=== PATIENT | female | born 1945 | race Caucasian/White ===

== ENCOUNTER 2019-11-29 06:56 | Observation (INO) ==
--- NOTE | 2019-11-05 14:58 | PAT Medication Instructions ---
Medication Instructions Date of Service November 05, 2019 Home Medications budesonide-formoterol [Symbicort] 2 puff INHALATION BID calcium carbonate-vit D3-min [Calcium 600 + Minerals] 1 tab PO QAM fluticasone propionate [Flonase Allergy Relief] 1 spray INTRANASAL BID PRN rmed 11/03/19] lisinopril-hydrochlorothiazide 1 tab PO HS loratadine [Claritin] 10 mg PO HS vitamins A,C,Y-xjwn-zqvdvf [PreserVision AREDS] 2 tab PO QAM STOP taking 2 weeks before surgery vitamins A,C,T-rgnl-smhdph [PreserVision AREDS] 2 tab PO QAM DO NOT take the morning of surgery calcium carbonate-vit D3-min [Calcium 600 + Minerals] 1 tab PO QAM Take morning of surgery With a small sip of water, OTHERWISE NOTHING TO EAT OR DRINK AFTER MIDNIGHT: budesonide-formoterol [Symbicort] 2 puff INHALATION BID fluticasone propionate [Flonase Allergy Relief] 1 spray INTRANASAL BID PRN (if needed) Take evening before surgery budesonide-formoterol [Symbicort] 2 puff INHALATION BID fluticasone propionate [Flonase Allergy Relief] 1 spray INTRANASAL BID PRN (if needed) lisinopril-hydrochlorothiazide 1 tab PO HS loratadine [Claritin] 10 mg PO HS Other Notes If you have any questions please call us at [phone] or [phone] or [phone] or [phone]
--- NOTE | 2019-11-10 13:42 | Anesthesiology Consultation ---
Date of Service November 10, 2019 Assessment & Plan (1) Encounter for pre-operative examination: Chart Review Chart Review: Acceptable Risk for Surgery (pending preop covid testing) and Patient seen in Pre Admission Testing Per PAT appt on 11/10/19, resides in [facility]. Had negative Covid test 10/29/19 preoperatively for c-scope. Educated patient to follow up with surgeon's office regarding Covid testing. Educated on importance of self quarantining, social distancing and wearing mask in public both for herself and household contacts. Teaching & Discussion Pre-Anesthesia Teaching/Discussion Notes: Instructed NPO after midnight before surgery,except medications with 15 cc of water. Medication instructions provided according to the [facility] guidelines. History Surgery Operation Date: 11/29/19 09:20 Proposed Procedures p Right Total Knee Arhtroplasty - Floyd Sotomayor, Height/Weight Height: 5 ft 2 in Weight: 77.2 kg Allergies Allergy/AdvReac Type Severity Reaction Status Date / Time No Known Allergies Allergy Verified 11/03/19 09:44 Medications Home Medications Medication Instructions Recorded Confirmed Last Taken budesonide-formoterol [Symbicort] 2 puff INHALATION BID 11/03/19 11/03/19 Unknown calcium carbonate-vit D3-min 1 tab PO QAM 11/03/19 11/03/19 Unknown [Calcium 600 + Minerals] fluticasone propionate [Flonase 1 spray INTRANASAL BID PRN 11/03/19 11/03/19 Unknown Allergy Relief] lisinopril-hydrochlorothiazide 1 tab PO HS 11/03/19 11/03/19 Unknown loratadine [Claritin] 10 mg PO HS 11/03/19 11/03/19 Unknown vitamins A,C,V-azwm-icaleu 2 tab PO QAM 11/03/19 11/03/19 Unknown [PreserVision AREDS] Past Medical History Medical History Asthma Controlled and stable. Albuterol use once nightly- PRN during the day. Cancer ENDOMETRIAL (2007)- S/P HYSTERECTOMY BSO- no chemo and XRT Hypertension Osteoarthritis Pneumonia 07/2019 TREATED THRU NGHIA ADAN WITH ANTIBIOTICS/STEROID-"FEELING BETTER" Thyroid nodule THYROID BEING CHECKED CURRENTLY [facility]-ULTRASOUND 11/15/19 Exercise / Class Metabolic Activity II 4-5 Yardwork/Stairs/Walk up hill (one flight of stairs - no chest pain or SOB ) Past Family History Family History Father Family history of diabetes mellitus Uncle Family history of esophageal cancer Past Surgical History Surgical History History of colonoscopy History of hysterectomy History of repair of rotator cuff RIGHT Status post knee replacement LEFT Past Anesthesia History No Hx of Anesthesia Complications and No Family Hx of Anesthesia Complications History of PONV No Hx of PONV and Hx of Motion Sickness (mild ) Social History Smoking Status: Never smoker Hx Alcohol Use: Yes Alcohol type: hard liquor alcohol intake frequency: 0-2 drinks per day (1-2 drinks daily ) Hx Substance Use: No Review of Systems Occ snoring- no witnessed apnea. No hx of sleep study Patient denies chest pain, shortness of breath, dyspnea on exertion, reflux, cough, wheezing, palpitations. No hx of seizures, stroke, ME. No hx of blood clots or blood transfusions Physical Exam Vital Signs VITALS BP 138/76 P 71 TEMP 98.3 SP02 96% RESP 16 Constitutional no acute distress ENMT Mouth: no TMJ clicking Thyromental Distance: > or= 3.5 Finger Breadths (4.0) Mallampati Class: II Denies missing teeth Neck neck extension not limited Respiratory normal respiratory effort; no respiratory distress Auscultation: lungs clear to auscultation bilaterally; no wheezes Cardiovascular Rate/Rhythm: regular rate and regular rhythm Heart Sounds: no murmur Vessels: no carotid bruit Musculoskeletal Spine: no pain with cervical ROM Neurologic moves all extremities Psychiatric Orientation: alert Testing Laboratory Results 11/10/19 13:58 11/10/19 13:58 PT 10.7 Seconds (9.0-12.0) 11/10/19 13:58 INR 1.0 (0.9-1.1) 11/10/19 13:58 APTT 27.5 Seconds (21.0-31.0) 11/10/19 13:58 Blood Type O Positive 11/10/19 13:58 Antibody Screen NEGATIVE 11/10/19 13:58 Electrocardiogram Date: 11/10/19 Findings: + NSR @ (61) Left axis deviation. Low voltage QRS. Chest X-Ray Date: 11/10/19 Findings: + NAD Echocardiogram Date: 04/04/15 EF: 55-60% LV Function: normal RWMA: + none Impaired LV relaxation per transmitral doppler flow pattern. LA mildly dilated. Mild TR
--- NOTE | 2019-11-10 14:18 | XRay Report ---
XR chest Pre-admission PA/Lat CLINICAL HISTORY: pat preoperative COMPARISON STUDY: No previous studies for comparison. FINDINGS: The bones soft tissues and hemidiaphragms are normal. The cardiomediastinal silhouette is n ormal. The lungs are clear. The pulmonary vasculature is normal. IMPRESSION: Negative chest. ACT 112: Negative or not required by law. The above report was generated using voice recognition software. It may contain grammatical, syntax or spelling errors. Electronically signed by: Asif Nunez M.D. 11/10/2019 2:17 PM
--- NOTE | 2019-11-10 14:54 | Electrocardiogram Report ---
Test Reason : Blood Pressure : / mmHG Vent. Rate : 061 BPM Atrial Rate : 061 BPM P-R Int : 136 ms QRS Dur : 096 ms QT Int : 412 ms P-R-T Axes : 074 -45 073 degrees QTc Int : 414 ms Normal sinus rhythm Left axis deviation Low voltage QRS Abnormal ECG No previous ECGs available Confirmed by Phoenix Weston ([id number]) on 11/10/2019 2:54:35 PM Referred By: Floyd Sotomayor Confirmed By:Phoenix Weston
[2019-11-10 16:37] LABS: Basophils # (auto) 0.05 K/uL (0-0.2); Basophils % (auto) 0.7 %; Eosinophils # (auto) 0.41 K/uL (0-0.5); Eosinophils % (auto) 6.1 %; Hematocrit (blood only) 38.1 % (37-47); Hemoglobin 12.5 g/dL (12.0-16.0); Immature Granulocytes # (auto) 0.01 K/uL (0.00-0.02); Immature Granulocytes % (auto) 0.1 %; Lymphocytes # (auto) 2.07 K/uL (1.2-3.4); Lymphocytes % (auto) 30.8 %; Mean Corpuscular Hemoglobin 32.2 pg (25-34); Mean Corpuscular Hgb Conc 32.8 g/dL (32-36); Mean Corpuscular Volume 98.2 fL (80-100); Mean Platelet Volume 12.3 fL (7.4-10.4); Monocytes # (auto) 0.68 K/uL (0.11-0.59); Monocytes % (auto) 10.1 %; Neutrophils # (auto) 3.49 K/uL (1.4-6.5); Neutrophils % (auto) 52.2 %; Platelet Count 220 K/uL (130-400); RDW Coefficient of Variation 13.2 % (11.5-14.5); RDW Standard Deviation 46.9 fL (36.4-46.3); Red Blood Count 3.88 M/uL (4.2-5.4); White Blood Count 6.71 K/uL (4.8-10.8)
[2019-11-10 16:46] LABS: BUN Creatinine Ratio 21.5 (10-20); Calcium 9.6 mg/dl (8.5-10.1); Creatinine Clr Calc Pharmacy 60.4 ml/min; Est GFR (African American) 84.1; Est GFR (Non-African American) 72.6; Potassium 4.1 mmol/L (3.5-5.1)
[2019-11-10 16:50] LABS: Partial Thromboplastin Time 27.5 Seconds (21.0-31.0); Prothrombin Time 10.7 Seconds (9.0-12.0)
--- NOTE | 2019-11-25 06:34 | History & Physical Report ---
Date of Service November 25, 2019 Assessment & Plan (1) Osteoarthritis of right knee: We will proceed with a right total knee arthroplasty. Postoperatively she will be started on aspirin for DVT prophylaxis and kept overnight in the hospital for postoperative medical management. Selam is a low risk for joint placement surgery without any major comorbidities. Present on Admission?: Yes History of Present Illness Chief Complaint: Primary osteoarthritis of the right knee Primary Care Provider: Murtaza oBwen MD Selam is a pleasant 74-year-old female who is been dealing with chronic increasing right knee pain. X-rays and clinical examination have been diagnostic for advanced osteoarthritis of the right knee. After failing conservative treatment, she has elected to proceed with a right total knee arthroplasty. She does have a history of a left knee replacement done in [place] several years ago. She has done well with that. Allergies Allergy/AdvReac Type Severity Reaction Status Date / Time No Known Allergies Allergy Verified 11/03/19 09:44 Home Medications Home Medications Medication Instructions Recorded Confirmed Type budesonide-formoterol [Symbicort] 2 puff INHALATION BID 11/03/19 11/03/19 History calcium carbonate-vit D3-min 1 tab PO QAM 11/03/19 11/03/19 History [Calcium 600 + Minerals] fluticasone propionate [Flonase 1 spray INTRANASAL BID PRN 11/03/19 11/03/19 History Allergy Relief] lisinopril-hydrochlorothiazide 1 tab PO HS 11/03/19 11/03/19 History loratadine [Claritin] 10 mg PO HS 11/03/19 11/03/19 History vitamins A,C,G-kpjo-zmgfwh 2 tab PO QAM 11/03/19 11/03/19 History [PreserVision AREDS] Past Med/Surg History Medical History Asthma Controlled and stable. Albuterol use once nightly- PRN during the day. Cancer ENDOMETRIAL (2007)- S/P HYSTERECTOMY BSO- no chemo and XRT Hypertension Osteoarthritis Pneumonia 07/2019 TREATED THRU NGHIA ADAN WITH ANTIBIOTICS/STEROID-"FEELING BETTER" Thyroid nodule THYROID BEING CHECKED CURRENTLY [facility]-ULTRASOUND 11/15/19 Surgical History History of colonoscopy History of hysterectomy History of repair of rotator cuff RIGHT Status post knee replacement LEFT Family History Father Family history of diabetes mellitus Uncle Family history of esophageal cancer Social History Preferred Language: Grenadian Communication Ability: Effective Configuration Manager Required: No Beliefs That Will Affect Care: None Current Living Situation: Spouse Feels Safe at Home: Yes Smoking Status: Never smoker Second Hand Exposure: Yes (FATHER/SPOUSE) ; Hx Alcohol Use: Yes Alcohol type: hard liquor Hx Substance Use: No Review of Systems Review of Systems: All systems reviewed & are unremarkable except as noted in HPI & below Physical Exam Constitutional: WD/WN, vitals as above Eyes: PERRL, conjunctivae normal, anicteric sclerae ENMT: external ear and nose normal, oropharynx normal Neck: trachea midline, no thyromegaly Respiratory: normal respiratory effort Cardiovascular: RRR, no murmur, no edema Gastrointestinal (Abdomen): normal bowel sounds, soft, nontender, no hepatosplenomegaly Musculoskeletal: On physical examination of the right knee there is a trace effusion. There is near full range of motion and no evidence of instability. There is significant tenderness palpation along the medial and lateral joint lines and over the distal femoral condyles. Psychiatric: A+Ox3, euthymic affect Results & Data Results & Data ([facility]) Diagnostic Findings Radiographs of the right knee demonstrate advanced osteoarthritis with joint space narrowing osteophyte formation and efys-mq-ajjm articulation. PG Care Time/CCT Total # of Minutes Spent Total Time Spent with Patient: Total time spent is greater than 50% in coordination of care (as documented) at patient's floor/unit and/or counseling patient: Coding Level of Care Code 11749 Initial Inpt Care Lvl 3 Diagnoses Osteoarthritis of right knee M17.11
[~2019-11-29 06:56] MED LIST: ACETAMINOPHEN 500 MG TAB PO SCH; CEFAZOLIN 1000MG 1,000 MG/7.5 ML SYR IV SCH; FAMOTIDINE 20 MG TAB PO SCH; GABAPENTIN 300 MG CAP PO SCH; LR 500ML BOLUS, THEN 15ML/HR IV SCH; LR 60ML/HR IV SCH; ROPIVACAINE 0.5% HCL/PF 150 MG, BUPIVACAINE 0.5% MPF 30 ML, EPINEPHrine 30MG/30ML (OR U... INFIL SCH; ROPIVACAINE 0.5% HCL/PF 150 MG, BUPIVACAINE 0.5% MPF 30 ML, EPINEPHrine 30MG/30ML (OR U... INSTIL SCH; TRANEXAMIC ACID 1,000 MG **IV Intra-op IV SCH; TRANEXAMIC ACID 1,000 MG **IV Pre-op IV SCH; [UNRECOGNIZED DRUG - REMARK] SCH; dexAMETHasone 4 MG TAB PO SCH
--- NOTE | 2019-11-29 06:58 | History & Physical Bridge Note ---
Date of Service November 29, 2019 History & Physical Bridge Note I have examined the patient, reviewed the History & Physical and in the interval since the performance of the History & Physical I have noted the following changes of clinical significance: no changes noted
[2019-11-29] MEDS ORDERED: ROPIVACAINE 0.5% 5 MG/ML 30 ML VIAL ONE (07:26)
[2019-11-29] MEDS ORDERED: BUPIVACAINE 0.5 % 5 MG/1 ML PF 10ML VIAL ONE (07:26)
[2019-11-29] MEDS ORDERED: PROPOFOL IV EMULSION 10 MG/ML 20 ML VIAL IV ONE (08:14)
[2019-11-29] MEDS ORDERED: ePHEDrine sulfate 50 MG/ML SYR ONE (08:14)
[2019-11-29] MEDS ORDERED: LIDOCAINE HCL 2% 2 ML VIAL/AMP(20MG/ML) INFIL ONE (08:14)
[2019-11-29] MEDS ORDERED: MIDAZOLAM HCL 1 MG/ML 2ML VIAL ONE ×2 (08:15)
[2019-11-29] MEDS ORDERED: fentaNYL citrate 100 MCG/2 ML VIAL ONE (08:15)
[2019-11-29] MEDS ORDERED: HYDROmorphone INJ 1 MG/ML SYRINGE IV PRN (08:29)
[2019-11-29] MEDS ORDERED: ATROPINE SULFATE 0.1 MG/ML 10ML SYR IV PRN (08:29)
[2019-11-29] MEDS ORDERED: fentaNYL citrate 100 MCG/2 ML VIAL IV PRN (08:29)
[2019-11-29] MEDS ORDERED: ONDANSETRON INJ 2 MG/ML 2 ML VIAL IV PRN ×2 (08:29→13:18)
[2019-11-29] MEDS ORDERED: ePHEDrine sulfate 50 MG/ML AMP IV PRN (08:29)
[2019-11-29] MEDS ORDERED: ORTHO JOINT ANESTHETIC ONE (09:15)
--- NOTE | 2019-11-29 11:03 | Operative Report ---
PG Post Operative Report Pre & Post Diagnosis Operation Date: 11/29/19 09:15 Pre-Op Diagnosis: RIGHT KNEE DEGENERATIVE JOINT DISEASE Post-Op Diagnosis: RIGHT KNEE DEGENERATIVE JOINT DISEASE I identified the patient and participated in the time-out.: Yes Procedure Operation Date: 11/29/19 09:15 Actual Procedures p Right Total Knee Arthroplasty(Right) - Floyd Sotomayor DO Surgeon Floyd Sotomayor DO Shirt Folding Machine Operator Floyd Constantino PAC Estimated Blood Loss 20 Findings Consistent with Post-Op Diagnosis Specimens Right femoral and tibial bone Complications none Disposition Disposition: Recovery Room Indications Selam is a pleasant 74-year-old female who presented my office with complaints of chronic increasing right knee pain. X-rays clinical examination have been diagnostic for advanced osteoarthritis of the right knee. After failing conservative treatment, she has elected to proceed with a right total knee arthroplasty. Description of Procedure Implants used: I used a Michael Persona total knee arthroplasty system with a size 9 narrow femur, E tibia, 29 patella, and a size 14 medial congruent polyethylene bearing. All components were cemented in place with Palacos G cement. Selam arrived [facility] for the above procedure. She was seen in the preoperative holding area and the operative extremity was identified and signed. She was given a preoperative antibiotic, TXA, a spinal anesthetic and an adductor nerve block. She was taken back to the operating room and laid on the table in supine position. She was given basic sedation. The operative knee was then prepped and draped in sterile fashion. A timeout was done, and the patient and the operative extremity was properly identified. A midline incision was made directly over the patella. Dissection was taken down to the extensor mechanism. A subvastus arthrotomy was used. The medial retinaculum was released and the fat pad was mostly excised. The knee was flexed and the ACL, PCL, and meniscus were removed. A drill was sent down the center of the femoral canal followed by an intramedullary zena. Off that zena a distal femoral cutting block was placed. 9 mm was resected off the distal femur at 5 of valgus. A posterior referencing AP sizing guide was then placed on the distal femur. The femur measured to be a size 9 narrow. 2 drill holes were placed in 3 of external rotation. A 4-in-1 cutting block was then impacted into place. Anterior, posterior, and chamfer cuts were then made. The proximal tibia was then exposed. An external tibial alignment guide was placed. A tibial cut guide was then anchored in place to resect 2 mm off the low medial side. The proximal tibia was then resected. The tibia measured to be a size E. The tibial plate was then placed in the appr opriate rotation and the tibia was drilled and punched. The posterior aspect of the knee was then opened up and any additional meniscus fragments and osteophytes were removed. Trial components were then placed. I used a size 14 medial congruent polyethylene insert. The knee was brought through a full range of motion and felt to be stable. The patella was then everted and 8 mm was resected off the posterior aspect of the patella. The patella measured to be a size 29. 3 peg holes were then drilled. A trial patella was placed. The knee was once again brought through a full range of motion and felt to be stable. Trial components were then removed. The surrounding soft tissues were injected with 100 cc of an orthopedic pain control cocktail. All components were then cemented into place with Palacos G cement. The final polyethylene insert was then snapped into place and the anterior bar was locked. Once cement was dry the tourniquet was deflated. Hemostasis was obtained. A dilute betadyne lavage was then done for 3 minutes. The joint was then irrigated with normal saline solution. The subvastus arthrotomy was then closed with #1 Vicryl suture. The skin was closed with 2-0 Vicryl, 3-0V lock suture, and ana rosa. A soft compressive dressing was placed. She was then transferred to a hospital bed and taken to the postanesthesia care unit in stable condition. She tole rated the procedure well. Floyd Constantino PA-C, was present for the entire procedure. He was critical for patient positioning, prepping, draping, retraction exposure, wound closure and application of sterile dressing. I attest to the content of the Intraoperative Record and any orders documented therein. Any exceptions are noted below.
--- NOTE | 2019-11-29 12:12 | Anesthesiology Progress Note ---
Date of Service November 29, 2019 Anesthesia Post Procedure Vital Signs Vital Signs: Temp Pulse Pulse Resp BP BP Pulse Ox 11/29/19 12:00 36.5 C 71 16 120/80 94 11/29/19 11:50 70 16 118/76 95 11/29/19 11:40 75 16 107/67 94 11/29/19 11:30 67 16 99/59 L 99 11/29/19 11:23 36.4 C L 69 16 98/62 L 99 11/29/19 08:00 37.1 C 64 18 147/79 H 97 11/29/19 07:28 37.1 C 68 18 140/76 95 Transfer of Care Handoff Completed per policy Notes Mental Status: alert / awake / arousable and participated in evaluation Patient Amnestic to Procedure: Yes Nausea / Vomiting: adequately controlled Pain: adequately controlled Airway Patency, RR, SpO2: stable & adequate BP & HR: stable & adequate Hydration State: stable & adequate Neuraxial Anesthesia: was administered and sensory block is resolving Anesthetic Complications: no major complications apparent and Pt Satisfied with anesthetic care Notes: The patient was noted to have T wave inversions on the monitor in PACU. A 12 lead EKG was done and showed NSR HR 65, T wave abnormality in the anterolateral leads. These changes appear to be new when compared to her preoperative EKG as well as her preop rhythm strip from today. The patient is currently resting comfortably in PACU with no complaints. She denies any chest pain, shortness of breath, lightheaded or dizziness, nausea or vomiting or any other complaints. I called and spoke to Holly who is with the [facility] service. She will be coming to the PACU to evaluate the patient. The patient will be transferred to telemetry for closer monitoring.
--- NOTE | 2019-11-29 12:44 | XRay Report ---
XR knee RT 1 or 2V routine CLINICAL HISTORY: Surgical Post Op COMPARISON: None. DISCUSSION: Anatomic alignment post total right knee arthroplasty. Could contact between prosthetic a nd underlying bone. Expected postoperative soft tissue change IMPRESSION: Anatomic alignment post total right knee arthroplasty. ACT 112: Negative or not required by law. The above report was generated using voice recognition software. It may contain grammatical, syntax or spelling errors. Electronically signed by: Asif Nunez M.D. 11/29/2019 12:42 PM
[2019-11-29 13:17] LABS: BUN Creatinine Ratio 21.4 (10-20); Blood Urea Nitrogen 18 mg/dl (7-18); Calcium 9.2 mg/dl (8.5-10.1); Carbon Dioxide 27 mmol/L (21-32); Chloride 108 mmol/L (98-107); Creatinine Clr Calc Pharmacy 59.3 ml/min; Est GFR (African American) 82.9; Est GFR (Non-African American) 71.5; Glucose 128 mg/dl (70-99); Potassium 4.4 mmol/L (3.5-5.1); Sodium 140 mmol/L (136-145)
[2019-11-29] MEDS ORDERED: FLUTICASONE PROPIONATE NA SPR 16 GM BTL PRN (13:18)
[2019-11-29] MEDS ORDERED: HYDROmorphone INJ 0.5 MG/0.5 ML SYR IV PRN (13:18)
[2019-11-29] MEDS ORDERED: METOCLOPRAMIDE HCL INJ 5 MG/ML 2 ML VIAL IV PRN (13:18)
[2019-11-29] MEDS ORDERED: bisacodyL 10 MG SUPP PR PRN (13:18)
[2019-11-29] MEDS ORDERED: NITROGLYCERIN SL 0.4 MG/TAB TAB SL PRN (13:18)
[2019-11-29] MEDS ORDERED: OXYCODONE HCL IR 5 MG TAB (IMMEDIATE RELEASE) PO PRN (13:18)
[2019-11-29] MEDS ORDERED: MAGNESIUM HYDROXIDE SUSP 30 ML UDC PO PRN (13:18)
[2019-11-29] MEDS ORDERED: NALOXONE HCL 0.4 MG/1 ML VIAL/CARP IV PRN (13:18)
[2019-11-29 13:21] LABS: Troponin I < 0.015 ng/ml (0-0.045)
--- NOTE | 2019-11-29 13:46 | Consultation ---
Date of Consultation November 29, 2019 Assessment & Plan (1) T wave inversion on electrocardiogram: This is a 74-year-old female with PMH of hypertension, asthma, thyroid nodule who is POD#0 s/p right TKA by Dr. Sotomayor who was found to have acute T wave changes on post-op EKG. -Post-op EKG with anterolateral T wave inversions that appeared new when compared to pre-op EKG from October -Asymptomatic patient, VSS, troponin negative, BMP without electrolyte abnormalities -Repeat EKG pending. Trend troponin x 2. Monitor on telemetry (2) Status post total knee replacement, right: POD#0 s/p R TKA by Dr. Sotomayor -Per ortho for pain control, wound care, anticoagulation and activities -Monitor H&H, continue incentive spirometry, PT/OT if appropriate (3) Hypertension: Continue lisinopril and hctz (4) Thyroid nodule: Recent abnormal thyroid labwork. F/u ultrasound with increased vascularity within some thyroid nodules. Started on levothyroxine with instructions to f/u with endo in [place] (5) Asthma: Continue Symbicort, albuterol PRN DVT Ppx: aspirin per primary service PCP: Jessi Dispo: Per ortho Thank you for this consultation. We will follow the patient with you during their hospital stay. You can reach a member of the [facility] Hospitalist Team 09/12 via pager @ [phone]. Patient seen in collaboration with Dr. Ramos. Please see addendum. Supervising Physician Co-Signing Physician Notes Attending addendum The patient was seen and examined in medical telemetry unit She has IVCD and was noted to have T inversion in V1 and 5, 6 following surgery today She mentioned to have required telemetry care following previous surgeries but does not know whether for the same reason Denies any chest pain, palpitation, shortness of breath On examination Hemodynamically stable No apparent distress at rest Heart-S1-S2 no murmur Labs and imaging studies and EKG as noted We will have troponin every 6 hours Repeat EKG in the morning Doubt any ACS Agree with assessment and plan as outlined above by VAN [address] History of Present Illness Reason for Consultation: Postoperatively EKG changes Attending Physician: Floyd Sotomayor DO History of Present Illness This is a 74-year-old female with PMH of hypertension, asthma, thyroid nodule who is POD#0 s/p right TKA by Dr. Sotomayor. Our service was consulted by anesthesiology when patient was in PACU due to T wave inversions noted on monitor. EKG then ordered and revealed anterolateral T wave inversions that appeared new when compared to pre-op EKG from October. The patient was seen while resting comfortably in PACU. She denies chest pain, pain in arms or jaw, shortness of breath, nausea or vomiting. Denies any lightheadedness, dizziness or visual changes. Denies any personal or family history of heart disease. Troponin and BMP were ordered with plans to transfer patient to [facility] telemetry for observation on monitor. Allergies Allergy/AdvReac Type Severity Reaction Status Date / Time No Known Allergies Allergy Verified 11/29/19 07:24 Home Medications Home Medications Medication Instructions Recorded Confirmed Type budesonide-formoterol [Symbicort] 2 puff INHALATION BID 11/03/19 11/29/19 History calcium carbonate-vit D3-min 1 tab PO QAM 11/03/19 11/29/19 History [Calcium 600 + Minerals] fluticasone propionate [Flonase 1 spray INTRANASAL BID PRN 11/03/19 11/29/19 History Allergy Relief] lisinopril-hydrochlorothiazide 1 tab PO HS 11/03/19 11/29/19 History [Zestoretic] loratadine [Claritin] 10 mg PO HS 11/03/19 11/29/19 History vitamins A,C,M-muvo-[id number] 2 tab PO QAM 11/03/19 11/29/19 History [PreserVision AREDS] levothyroxine 50 mcg PO DAILY 11/29/19 11/29/19 History oxycodone 5 mg PO Q4H PRN #30 tab 11/29/19 Rx Patient History Medical History (Updated 11/29/19 @ 15:33 by Floyd Sotomayor DO) Asthma Controlled and stable. Albuterol use once nightly- PRN during the day. Cancer ENDOMETRIAL (2007)- S/P HYSTERECTOMY BSO- no chemo and XRT Hypertension Osteoarthritis Thyroid nodule THYROID BEING CHECKED CURRENTLY GHS-ULTRASOUND 11/15/19 Surgical History (Updated 11/29/19 @ 15:33 by Floyd A Bran, DO) History of colonoscopy History of hysterectomy History of repair of rotator cuff RIGHT History of total right knee replacement (~11/2019) Status post knee replacement LEFT Family History Father Family history of diabetes mellitus Uncle Family history of esophageal cancer Social History Preferred Language: Faroese Communication Ability: Effective Crosstie Inspector Required: No Beliefs That Will Affect Care: Faith Current Living Situation: Spouse Other Information That Helps Us Care for You: No Feels Safe at Home: Yes Safety Concerns: Feels Safe At This Time Smoking Status: Never smoker Do You Dip or Chew Tobacco: No ; Second Hand Exposure: No ; Tobacco Cessation Education Requested by Patient: No Hx Alcohol Use: Yes Alcohol type: wine Hx Substance Use: No Review of Systems Review of Systems: At least ten systems reviewed and negative except as noted in the HPI. Physical Exam Physical Exam: General Appearance: WD/WN, vitals as above, NAD, pleasant, conversing easily Head: normocephalic, atraumatic Eyes: normal inspection, PERRL, conjunctivae normal, anicteric sclerae ENT: external ear and nose normal, oropharynx normal Neck: trachea midline, no thyromegaly normal visual inspection Respiratory: normal respiratory effort, lungs clear to auscultation, no wheeze, rales, rhonchi Cardiovascular: regular rate, rhythm, no murmur, normal peripheral pulses. Vessels: no JVD Chest: normal inspection of chest Abdomen/GI: normal bowel sounds, soft, nontender, no hepatosplenomegaly Extremities/Musculoskeletal: + R knee with surgical dressing clean, dry, intact. No cyanosis or clubbing, extremities motor strength 5/5 Neurologic: PERRL, CN's II-XI intact bilaterally and moves all extremities Psychiatric: A+Ox3, euthymic affect Skin: no rashes, normal color, warm/dry Results & Data ([facility]) Vital Signs (Past 12 Hours) Vital Signs Temp Pulse Pulse Resp BP BP Pulse Ox 11/29/19 13:10 36.6 C 64 16 120/71 96 11/29/19 12:50 36.8 C 62 16 128/76 95 11/29/19 12:40 66 16 137/71 94 11/29/19 12:30 59 L 16 119/73 94 11/29/19 12:20 59 L 16 119/73 94 11/29/19 12:10 36.5 C 59 L 16 125/73 94 11/29/19 12:00 36.5 C 71 16 120/80 94 11/29/19 11:50 70 16 118/76 95 11/29/19 11:40 75 16 107/67 94 11/29/19 11:30 67 16 99/59 L 99 11/29/19 11:23 36.4 C L 69 16 98/62 L 99 11/29/19 08:00 37.1 C 64 18 147/79 H 97 11/29/19 07:28 37.1 C 68 18 140/76 95 Laboratory Results [facility] 11/29/19 12:51 Sodium 140 Potassium 4.4 Chloride 108 H Carbon Dioxide 27 BUN 18 Creatinine 0.82 Glucose 128 H Calcium 9.2 Cardiac Enzymes 11/29/19 Range/Units 12:51 Troponin I < 0.015 (0-0.045) ng/ml ECG Rhythm: normal sinus
[2019-11-29] MEDS: SODIUM CHLORIDE 0.9% 1000ML 1,000 ML IV SCH ×2 (14:20→23:42)
[2019-11-29] MEDS: ACETAMINOPHEN 500 MG TAB PO SCH ×2 (14:21→21:54)
--- NOTE | 2019-11-29 14:27 | Electrocardiogram Report ---
Test Reason : Blood Pressure : / mmHG Vent. Rate : 065 BPM Atrial Rate : 065 BPM P-R Int : 158 ms QRS Dur : 090 ms QT Int : 464 ms P-R-T Axes : 054 -32 141 degrees QTc Int : 482 ms Normal sinus rhythm Left axis deviation T wave abnormality, consider anterolateral ischemia Prolonged QT Abnormal ECG When compared with ECG of 10-NOV-2019 13:54, Nonspecific T wave abnormality now evident in Inferior leads T wave inversion now evident in Anterolateral leads QT has lengthened Confirmed by Roc Ovalles ([id number]) on 11/29/2019 2:26:29 PM Referred By: Floyd Sotomayor Confirmed By:Kenny Ovalles
[2019-11-29] MEDS: KETOROLAC TROMETHAMINE 15 MG/ML VIAL IV SCH ×2 (15:21→21:53)
--- NOTE | 2019-11-29 17:30 | Electrocardiogram Report ---
Test Reason : Blood Pressure : / mmHG Vent. Rate : 073 BPM Atrial Rate : 073 BPM P-R Int : 142 ms QRS Dur : 086 ms QT Int : 398 ms P-R-T Axes : 052 -37 096 degrees QTc Int : 438 ms Normal sinus rhythm Left axis deviation Poor R wave progression, consider anterior DC vs. lead placement vs. LVH Abnormal ECG When compared with ECG of 29-NOV-2019 11:52, No significant change was found Confirmed by Roc Ovalles ([id number]) on 11/29/2019 5:29:44 PM Referred By: Floyd Sotomayor Confirmed By:Kenny Ovalles
[2019-11-29] MEDS: CEFAZOLIN 2000MG 2,000 MG/15 ML SYR IV SCH (17:32)
[2019-11-29] MEDS: DOCUSATE SODIUM 100 MG CAP PO SCH (20:16)
[2019-11-29] MEDS: ASPIRIN 81 MG ECTAB PO SCH (20:17)
[2019-11-29] MEDS ORDERED: LORATADINE 10 MG TAB PO SCH (21:00)
[2019-11-29] MEDS ORDERED: LISINOPRIL/HCTZ 20/12.5MG 1 TAB TAB PO SCH (21:00)
[2019-11-29] MEDS ORDERED: SENNA 8.6 MG TAB PO SCH (21:00)
[2019-11-30] MEDS: CEFAZOLIN 2000MG 2,000 MG/15 ML SYR IV SCH (02:44)
[2019-11-30] MEDS: KETOROLAC TROMETHAMINE 15 MG/ML VIAL IV SCH ×2 (04:15→10:18)
[2019-11-30] MEDS: ACETAMINOPHEN 500 MG TAB PO SCH (06:12)
[2019-11-30] MEDS ORDERED: LEVOTHYROXINE SODIUM 50 MCG TABLET PO SCH ×2 (06:30→07:30)
[2019-11-30 06:58] LABS: Hematocrit (blood only) 31.6 % (37-47); Hemoglobin 10.5 g/dL (12.0-16.0); Mean Corpuscular Hemoglobin 31.8 pg (25-34); Mean Corpuscular Hgb Conc 33.2 g/dL (32-36); Mean Corpuscular Volume 95.8 fL (80-100); Mean Platelet Volume 11.3 fL (7.4-10.4); Platelet Count 162 K/uL (130-400); RDW Coefficient of Variation 13.2 % (11.5-14.5); White Blood Count 10.86 K/uL (4.8-10.8)
--- NOTE | 2019-11-30 07:11 | Orthopedic Progress Note ---
Date of Service November 30, 2019 Assessment & Plan (1) History of total right knee replacement: Overall she is doing well. She will be seen by physical therapy this morning for ambulation and range of motion exercises. She is on aspirin for DVT prophylaxis. She has been seen by the hospitalist for the T wave inversions on her EKG. She says she has had this after previous anesthesias and surgeries. She is asymptomatic and this is not an unexpected complication from the surgical procedure. Her current troponins are negative. We will await the final series of troponins and as long as she remains asymptomatic, and her blood work looks good, she can be discharged home later today. She expressed the desire to be home by later this afternoon. As long as she is cleared by the hospitalist then she can be discharged home today. Present on Admission?: Yes Physical Exam Musculoskeletal: On physical examination of the right knee, the dressing is clean and dry. Her legs out in full extension. She has active dorsiflexion and plantarflexion of the right ankle. Sensation is intact throughout. Results & Data ([facility]) Vital Signs (Past 12 Hours) Vital Signs Temp Pulse Pulse Pulse Resp BP BP 11/30/19 03:11 36.7 C 60 18 108/70 11/30/19 03:10 66 11/29/19 22:51 37.1 C 66 18 111/67 11/29/19 19:34 37.1 C 73 18 128/77 Pulse Ox 11/30/19 03:11 95 11/30/19 03:10 11/29/19 22:51 94 11/29/19 19:34 95 Laboratory Results H & H 11/10/19 11/30/19 Range/Units 13:58 06:48 Hgb 12.5 10.5 L (12.0-16.0) g/dL Hct 38.1 31.6 L (37-47) % Coagulation 11/10/19 Range/Units 13:58 INR 1.0 (0.9-1.1) Diagnostic Findings Postoperative x-rays of the right knee show the prosthesis to be in anatomic alignment without any evidence of fracture, dislocation, or loosening. PG Care Time/CCT Total # of Minutes Spent Total Time Spent with Patient: Total time spent is greater than 50% in coordination of care (as documented) at patient's floor/unit and/or counseling patient: Coding Level of Care Code None Diagnoses History of total right knee replacement Z96.651
--- NOTE | 2019-11-30 07:14 | Discharge Summary ---
Date of Service November 30, 2019 Admission HPI Per Admitting Provider Selam is a pleasant 74-year-old female who is been dealing with chronic increasing right knee pain. X-rays and clinical examination have been diagnostic for advanced osteoarthritis of the right knee. After failing co nservative treatment, she has elected to proceed with a right total knee arthroplasty. She does have a history of a left knee replacement done in [place] several years ago. She has done well with that. Principal Diagnosis Right total knee arthroplasty Discharge Data Allergies Allergy/AdvReac Type Severity Reaction Status Date / Time No Known Allergies Allergy Verified 11/29/19 07:24 Consultations 11/29/19 13:18 Consult Case Management - Discharge Planning Routine Procedures Performed Operation Date: 11/29/19 09:15 Actual Procedures p Right Total Knee Arthroplasty(Right) - Floyd Sotomayor DO Ordered Studies 11/29/19 05:00 US - OR guided needle placemen Routine 11/29/19 08:30 US - OR guided needle placemen Routine Hospital Course (1) History of total right knee replacement: On November [address] [facility] and underwent a right total knee arthroplasty without complication. She had a spinal anesthetic. Postoperatively she was started on aspirin for DVT prophylaxis. While she was in the PACU, the anesthesiologist noticed some new T wave inversions on her EKG. She was asymptomatic but transferred to the telemetry floor for monitoring. Troponin levels were drawn and the hospitalist was consulted. On postop day #1 her H&H was stable and her pain was well controlled. Her troponin levels were negative. She was able to participate well with physical therapy doing ambulation and range of motion exercises. She was eventually cleared by the hospitalist and then discharged home. She will follow-up with orthopedics in 2 weeks. Total Time Total Time Spent Total Time Spent (In Minutes): 20 Discharge Plan Discharge Items Patient Disposition: Home - Home Health Services Reason For Visit: RIGHT KNEE DEGENERATIVE JOINT DISEASE Discharge Diagnosis: Right knee replacement Activity: As commented below Non-emergency contact: Surgeon Call non-emergency contact if: your wound has increased redness and your wound has increased drainage Follow-up/Referrals: Murtaza Bowen MD [Primary Care Provider] - Diet: Regular Addtl Attending Provider Instructions: Activity and Therapy Recommendations: * If you are using [facility] then therapy will be provided at your home until they feel you have accomplished all of your goals. * If you are using [facility] then Physical Therapy will be provided until they feel you are ready to start Outpatient Physical Therapy. * If you are not using home therapy then Outpatient Physical Therapy should start about 3-5 days from your day of surgery. Therapy will last about 6-10 weeks * It is important not to put a pillow under your knee when you are relaxing or sleeping. It is just as important to make sure you are getting your knee perfectly straight as it is to regain your knee bend. * You were shown a series of exercises in the hospital. Do these exercises three times each day including the exercises you were shown in physical therapy. * Get up and walk several times each day. For the first four weeks, try not to stand or walk for more than one hour at a time. If you do stand or walk for more than one hour, you will not hurt anything, but your leg will likely swell. * As you feel comfortable, you may change from the walker or crutches to a cane and then to independent walking. Medications: * Narcotic You will likely be sent home from the hospital with a prescription for the narcotic pain medication that worked best throughout your stay. * Aspirin Most patients will be required to take Aspirin 81mg twice a day for 6 weeks after surgery. This is obtained [id number] and a prescription is not necessary. * Other medications may be prescribed for specific circumstances. If you have any questions, please call the office at . * Resume previous home medications unless otherwise instructed TEDs/Elastic Stockings: The white elastic stockings help limit swelling and prevent blood clots from forming in your legs.~ The more you wear them, the more they work. Wear them for six weeks. Dressing Care: Leave the Silverlon dressing on for 7 days. After 7 days you may remove the dressing. If the incision is not draining then you may leave the ana rosa open to air. If there is a little bit of drainage or if the ana rosa are getting stuck on your clothing then cover the incision with a dry dressing. The ana rosa will be removed at your 2 week follow-up appointment. Showering: You may shower with the Silverlon dressing in place. Do not scrub or soak the dressing. After 7 days you may remove the dressing and shower with the ana rosa exposed. Let the soapy shower water run over the ana rosa and pat them dry. Do not scrub or soak the incision. Things To Watch For: * Drainage from the incision site that occurs more than one week after your surgery. * Increased redness at the incision site. * Fever above 102 degrees Fahrenheit. * Unusual chest pain or shortness of breath. * Call [facility] at with any of the above problems Follow-Up Visit: Follow-up with Dr. Sotomayor's PA (Floyd Constantino) 2-3 weeks after your day of surgery. He will remove your ana rosa and answer any questions. If you have any additional questions or concerns, Dr Sotomayor is usually in the office at the same time and will be available An appointment was probably scheduled when you signed-up for surgery in the office. If you have any questions call Office Instructions: More detailed instructions as well as Frequently Asked Questions were provided in a folder by our office when you signed-up for surgery. Please review these instructions when you get home. If you have any further questions or concerns, please feel free to call the office at [phone] Pending Studies at Discharge: No Stand-Alone Forms: My [facility], Smoking Cessation Medications and DC Order Prescriptions: New oxycodone 5 mg Tablet 5 mg PO Q4H PRN (Reason: pain) Qty: 30 RF: 0 aspirin 81 mg Tablet,Delayed Release (Dr/Ec) 81 mg PO BID 42 Days Qty: 0 RF: 0 Continued lisinopril-hydrochlorothiazide [Zestoretic] 20-12.5 mg Tablet 1 tab PO HS RF: 0 fluticasone propionate [Flonase Allergy Relief] 50 mcg/actuation Gilead,Suspension 1 spray INTRANASAL BID PRN (Reason: Allergy Symptoms) RF: 0 loratadine [Claritin] 10 mg Tablet 10 mg PO HS RF: 0 budesonide-formoterol [Symbicort] 80-4.5 mcg/actuation Hfa Aerosol Inhaler 2 puff INHALATION BID RF: 0 Calcium 600 + Minerals 600 mg calcium- 200 unit Tablet 1 tab PO QAM RF: 0 PreserVision AREDS 7,160-113-100 [id number] Tablet 2 tab PO QAM RF: 0 levothyroxine 50 mcg Tablet 50 mcg PO DAILY RF: 0 Discharge Orders: Discharge Order (Routine); Ordered 11/30/19 Ordered By: Floyd Sotomayor Admission Data Admit Date/Time: 11/29/19 12:11 Attending Provider: Floyd Sotomayor Admit Provider: Bro Ramos Primary Care Provider: Murtaza Bowen Coding Level of Care Code D/C Day Management <30 mins Diagnoses History of total right knee replacement Z96.651
[2019-11-30 07:34] LABS: BUN Creatinine Ratio 21.2 (10-20); Calcium 8.3 mg/dl (8.5-10.1); Creatinine Clr Calc Pharmacy 57.1 ml/min; Est GFR (African American) 77.1; Est GFR (Non-African American) 66.6; Potassium 3.6 mmol/L (3.5-5.1)
[2019-11-30] MEDS ORDERED: dexAMETHasone 4 MG TAB PO SCH (08:00)
[2019-11-30] MEDS: ASPIRIN 81 MG ECTAB PO SCH (08:43)
[2019-11-30] MEDS: DOCUSATE SODIUM 100 MG CAP PO SCH (08:43)
[2019-11-30] MEDS ORDERED: MULTIVITAMIN TAB PO SCH (09:00)
[2019-11-30] MEDS ORDERED: FLUTICASONE/VILANTEROL 100/25MCG 14 PUFFS/INHALER INH SCH (09:00)
--- NOTE | 2019-11-30 12:19 | Hospitalist Progress Note ---
Date of Service November 30, 2019 Assessment & Plan (1) T wave inversion on electrocardiogram: This is a 74-year-old female with PMH of hypertension, asthma, thyroid nodule who is POD#0 s/p right TKA by Dr. Sotomayor who was found to have acute T wave changes on post-op EKG. -Post-op EKG with anterolateral T wave inversions that appeared new when compared to pre-op EKG from October -Asymptomatic patient, VSS, troponin negative, BMP without electrolyte abnormalities -Repeat EKG pending. Trend troponin x 2. Monitor on telemetry -Serial troponin remain negative for any ACS -Repeat EKG this morning did show nonspecific T wave changes -No further cardiac testing is needed -The patient is medically cleared to be discharged (2) Status post total knee replacement, right: POD#0 s/p R TKA by Dr. Sotomayor -Per ortho for pain control, wound care, anticoagulation and activities -Monitor H&H, continue incentive spirometry, PT/OT if appropriate (3) Hypertension: Continue lisinopril and hctz (4) Thyroid nodule: Recent abnormal thyroid labwork. F/u ultrasound with increased vascularity within some thyroid nodules. Started on levothyroxine with instructions to f/u with endo in [place] (5) Asthma: Continue Symbicort, albuterol PRN DVT Ppx: aspirin per primary service PCP: Jessi Dispo: Reggie torres Thank you for this consultation. We will follow the patient with you during their hospital stay. You can reach a [facility] via pager @ [phone]. Admission and Anticipated Discharge Date Admission Date: November 29, 2019 Subjective The patient was seen and examined in medical telemetry unit She is a status post right knee arthroplasty Noted to have team worsening lateral leads following the procedure Denies any cardiac symptoms She is ready to go home as per orthopedics Review of Systems Review of Systems: All systems reviewed and are unremarkable except as noted below Cardiovascular: no chest pain and no palpitations Physical Exam Physical Exam: Lying in bed comfortably Constitutional: well developed and well nourished; no acute distress Eyes: PERRL, conjunctivae normal, anicteric sclerae ENMT: external ear and nose normal, oropharynx normal Respiratory: no respiratory distress Auscultation: lungs clear to au scultation bilaterally Cardiovascular: Heart Sounds: normal S1 and normal S2; no murmur Gastrointestinal (Abdomen): Inspection/Auscultation: abdomen normal to inspection; abdomen not distended Musculoskeletal: Right knee pain with movement Results & Data Results & Data ([facility]) Vital Signs (Past 12 Hours) Vital Signs Temp Pulse Pulse Pulse Resp BP BP 11/30/19 12:11 36.8 C 70 60 19 116/72 128/78 11/30/19 11:33 36.8 C 70 19 128/78 11/30/19 07:35 68 11/30/19 07:20 36.5 C 66 17 116/72 11/30/19 03:11 36.7 C 60 18 108/70 11/30/19 03:10 66 Pulse Ox 11/30/19 12:11 98 11/30/19 11:33 98 11/30/19 07:35 11/30/19 07:20 100 11/30/19 03:11 95 11/30/19 03:10 Laboratory Results Short CBC 11/30/19 Range/Units 06:48 WBC 10.86 H (4.8-10.8) K/uL Hgb 10.5 L (12.0-16.0) g/dL Hct 31.6 L (37-47) % Plt Count 162 (130-400) K/uL BMP 11/30/19 06:48 Sodium 144 Potassium 3.6 D Chloride 112 H Carbon Dioxide 25 BUN 18 Creatinine 0.87 Glucose 107 H Calcium 8.3 L Cardiac Enzymes 11/30/19 Range/Units 06:48 Troponin I < 0.015 (0-0.045) ng/ml
--- NOTE | 2019-11-30 15:34 | Electrocardiogram Report ---
Test Reason : Blood Pressure : / mmHG Vent. Rate : 087 BPM Atrial Rate : 087 BPM P-R Int : 126 ms QRS Dur : 094 ms QT Int : 354 ms P-R-T Axes : 059 -24 110 degrees QTc Int : 425 ms Normal sinus rhythm Low voltage QRS Nonspecific ST and T wave abnormality Abnormal ECG When compared with ECG of 29-NOV-2019 15:00, No significant change was found Confirmed by Roc Ovalles ([id number]) on 11/30/2019 3:34:02 PM Referred By: Floyd Sotomayor Confirmed By:Kenny Ovalles
== END 2019-11-30 13:00 | disposition home health service (06) ==
LOC: ASU 06:56 → 2N 06:56